=== PATIENT | female | born 1990 | race Caucasian/White ===

== ENCOUNTER 2016-11-24 07:36 | Emergency (ER) | payer MEDICAID, OTHER ==
[2016-11-24 07:48] VITALS: BP 116/64
--- NOTE | 2016-11-24 08:44 | UC ---
Throat Pain/Nasal Jens HPI - HPI Summary HPI Summary: 1 week of hoarseness, dry irritating cough at night. Lost voice 4d ago. No fever. No sinus congestion. No sore throat. - History of Current Complaint Chief Complaint: UCRespiratory Stated Complaint: SORE THROAT,COUGH Time Seen by Provider: 11/24/16 08:09 Hx Obtained From: Patient Hx Last Menstrual Period: 11/14/16 Onset/Duration: Gradual Onset Severity: Mild Cough: Nonproductive Associated Signs & Symptoms: Positive: Hoarseness. Negative: Dysphagia, FB Sensation, Drooling, Wheezing, Sinus Discomfort, Nasal Discharge, Fever, Vomiting, Rash - Allergies/Home Medications Allergies/Adverse Reactions: Allergies Allergy/AdvReac Type Severity Reaction Status Date / Time Amoxicillin Allergy Intermediate Hives Verified 11/24/16 07:43 Home Medications: Home Medications guaiFENesin LIQ* [Robitussin*] 5 mg PO Q4H PRN 11/24/16 [History Confirmed 11/24] PMH/Surg Hx/FS Hx/Imm Hx Previously Healthy: Yes Cardiovascular History Of: Reports: Cardiac Disorders - [facility]/ History Of: Reports: Ulcer - Surgical History Surgical History: Yes Surgery Procedure, Year, and Place: ear tubes, csection - Family History Known Family History: Negative: Diabetes - Social History Occupation: Employed Full-time Lives: With Family Alcohol Use: Occasionally Substance Use Type: None Smoking Status (MU): Never Smoked Tobacco - Immunization History Most Recent Influenza Vaccination: NOT THIS SEASON Review of Systems Constitutional: Negative Skin: Negative Eyes: Negative ENT: Other - hoarseness Respiratory: Cough Cardiovascular: Negative Gastrointestinal: Negative Genitourinary: Negative Motor: Negative Neurovascular: Negative Musculoskeletal: Negative Neurological: Negative Psychological: Negative All Other Systems Reviewed And Are Negative: Yes Physical Exam Triage Information Reviewed: Yes Appearance: Well-Appearing, No Pain Distress, Well-Nourished, Thin Vital Signs: Initial Vital Signs Temp 98.7 F 11/24/16 07:44 Pulse 64 11/24/16 07:44 Resp 18 11/24/16 07:44 BP 116/64 11/24/16 07:44 Pulse Ox 100 11/24/16 07:44 Vital Signs Reviewed: Yes Eye Exam: Normal Eyes: Positive: Conjunctiva Clear ENT: Positive: Pharyngeal erythema - mild, TM dull - right side with fluid level , Muffled/hoarse voice - hoarse. Negative: Tonsillar swelling, Tonsillar exudate, Trismus Neck exam: Normal Neck: Positive: Supple Respiratory Exam: Normal Respiratory: Positive: Lungs clear, Normal breath sounds Cardiovascular Exam: Normal Musculoskeletal Exam: Normal Neurological Exam: Normal Psychological Exam: Normal Skin Exam: Normal Diagnostics - Laboratory Diagnostic Studies Completed/Ordered: Strep neg Throat Pain/Nasal Course/Dx - Differential Dx/Diagnosis Differential Diagnosis/HQI/PQRI: Pharyngitis, URI Provider Diagnoses: uri Discharge - Discharge Plan Condition: Stable Disposition: HOME Prescriptions: Guaifenesin-Codeine [Cheratussin AC] 2 teasp PO BEDTIME PRN #100 ml MDD 10cc PRN Reason: Cough predniSONE TAB* [Deltasone TAB*] 40 mg PO DAILY #8 tab Patient Education Materials: Upper Respiratory Infection (ED) Referrals: Davida Richard MD [Primary Care Provider] -
== END 2016-11-24 08:47 | disposition home or self-care (01) ==
LOC: UCCORT 07:36
DX: J06.9 Acute upper respiratory infection, unspecified (principal); Z88.0 Allergy status to penicillin
CPT/HCPCS: 87651; 99211; G0463

== ENCOUNTER 2016-12-02 09:13 | Emergency (ER) | payer OTHER ==
--- NOTE | 2016-12-02 11:33 | UC ---
Throat Pain/Nasal Jens HPI - HPI Summary HPI Summary: 26 YO FEMALE WITH 2 1/2 WK HX OF COUGH/RUNNY NOSE/SORE THROAT/SINUS PRESSURE AND PAIN NO F/C SEE HERE EARLY IN COURSE OF ILLNESS AND RXED WITH PREDNISONE FOR LARYNGITIS ( WHICH HAS RESOLVED) - History of Current Complaint Chief Complaint: UCGeneralIllness Stated Complaint: THROAT RE-CHECK Time Seen by Provider: 12/02/16 11:22 Hx Obtained From: Patient Hx Last Menstrual Period: 11/14/16 Onset/Duration: Gradual Onset, Lasting Weeks Severity: Moderate Pain Intensity: 4 Pain Scale Used: 0-10 Numeric Cough: Nonproductive Associated Signs & Symptoms: Positive: Sinus Discomfort, Nasal Discharge - Epiglottits Risk Factors Epiglottis Risk Factors: Negative - Allergies/Home Medications Allergies/Adverse Reactions: Allergies Allergy/AdvReac Type Severity Reaction Status Date / Time Amoxicillin Allergy Intermediate Hives Verified 11/24/16 07:43 Home Medications: Home Medications Pseudoephedrine-Guaifenesin [Mucinex D 60-600 mg] 1 tab PO Q6HR PRN 12/02/16 [ History Confirmed 12/02/16] PMH/Surg Hx/FS Hx/Imm Hx Previously Healthy: Yes Cardiovascular History Of: Reports: Cardiac Disorders - [facility]/ History Of: Reports: Ulcer - Surgical History Surgical History: Yes Surgery Procedure, Year, and Place: ear tubes, csection - Family History Known Family History: Positive: Hypertension Negative: Diabetes - Social History Alcohol Use: Occasionally Substance Use Type: None Smoking Status (MU): Never Smoked Tobacco - Immunization History Most Recent Influenza Vaccination: NOT THIS SEASON Review of Systems Constitutional: Negative Skin: Negative Eyes: Negative ENT: Sore Throat, Nasal Discharge Respiratory: Cough Cardiovascular: Negative Gastrointestinal: Negative Genitourinary: Negative Motor: Negative Neurovascular: Negative Musculoskeletal: Negative Neurological: Negative Psychological: Negative All Other Systems Reviewed And Are Negative: Yes Physical Exam Triage Information Reviewed: Yes Appearance: Well-Appearing, No Pain Distress, Well-Nourished Vital Signs: Initial Vital Signs Temp 97.7 F 12/02/16 11:15 Pulse 63 12/02/16 11:15 Resp 16 12/02/16 11:15 Pulse Ox 100 12/02/16 11:15 Vital Signs Reviewed: Yes Eyes: Positive: Conjunctiva Clear ENT: Positive: Hearing grossly normal, Pharyngeal erythema, Nasal congestion, Nasal drainage, TMs normal. Negative: Tonsillar swelling, Tonsillar exudate, Trismus, Muffled/hoarse voice Dental: Negative: Gross Decay/Caries @, Abscess @ Neck: Positive: Supple, Nontender, No Lymphadenopathy Respiratory: Positive: Lungs clear, Normal breath sounds, No respiratory distress, No accessory muscle use Cardiovascular: Positive: RRR. Negative: Tachycardia, Bradycardia Musculoskeletal: Positive: ROM Intact, No Edema Neurological: Positive: Alert Psychological Exam: Normal Skin Exam: Normal Throat Pain/Nasal Course/Dx - Differential Dx/Diagnosis Provider Diagnoses: ACUTE SINUSITIS Discharge - Discharge Plan Condition: Stable Disposition: HOME Prescriptions: ceFUROXime TAB(*) [Ceftin TAB(*)] 250 mg PO BID #20 tab Patient Education Materials: Sinusitis (ED) Referrals: Davida Richard MD [Primary Care Provider] - If Needed Additional Instructions: RECHECK FOR NEW OR WORSENING SYMPTOMS OR IF NOT BETTER IN 4-7 DAYS
== END 2016-12-02 11:38 | disposition home or self-care (01) ==
LOC: UCCORT 09:13
DX: J01.90 Acute sinusitis, unspecified (principal); Z88.1 Allergy status to other antibiotic agents
CPT/HCPCS: 99212; G0463

== ENCOUNTER 2017-07-07 11:20 | Emergency (ER) | payer OTHER ==
[2017-07-07 11:46] VITALS: BP 95/45
--- NOTE | 2017-07-07 12:22 | UC ---
Throat Pain/Nasal Jens HPI - HPI Summary HPI Summary: THREE DAYS OF HEADACHE FEVER, SORE THROAT SINUS CONGESTION. TODDLER HAD STREP THROAT TWO WEEKS AGO. - History of Current Complaint Chief Complaint: UCGeneralIllness Stated Complaint: FEVER SORE THROAT HEADACHE Time Seen by Provider: 07/07/17 11:35 Hx Obtained From: Patient Hx Last Menstrual Period: 06/14/17 Onset/Duration: Gradual Onset, Lasting Days, Still Present Severity: Moderate Pain Intensity: 7 Pain Scale Used: 0-10 Numeric Associated Signs & Symptoms: Positive: Hoarseness, Sinus Discomfort, Nasal Discharge, Fever - Epiglottits Risk Factors Epiglottis Risk Factors: Negative - Allergies/Home Medications Allergies/Adverse Reactions: Allergies Allergy/AdvReac Type Severity Reaction Status Date / Time Amoxicillin Allergy Intermediate Hives Verified 07/07/17 11:40 Home Medications: Home Medications Ibuprofen TAB* [Advil TAB*] 400 mg PO Q6H PRN 07/07/17 [History Confirmed ] PMH/Surg Hx/FS Hx/Imm Hx Previously Healthy: Yes - Surgical History Surgical History: Yes Surgery Procedure, Year, and Place: ear tubes, csection - Family History Known Family History: Positive: Hypertension Negative: Diabetes - Social History Occupation: Employed Full-time Lives: With Family Alcohol Use: Occasionally Substance Use Type: None Smoking Status (MU): Never Smoked Tobacco - Immunization History Most Recent Influenza Vaccination: Not the Season Review of Systems Constitutional: Fever, Chills, Fatigue Eyes: Negative ENT: Sore Throat, Ear Ache, Sinus Congestion Respiratory: Negative Cardiovascular: Negative Gastrointestinal: Negative Genitourinary: Negative Motor: Negative Neurovascular: Negative Musculoskeletal: Negative Neurological: Negative Psychological: Negative All Other Systems Reviewed And Are Negative: Yes Physical Exam Triage Information Reviewed: Yes Appearance: Well-Appearing, No Pain Distress, Well-Nourished Vital Signs: Initial Vital Signs Temp 98.8 F 07/07/17 11:37 Pulse 78 07/07/17 11:37 Resp 16 07/07/17 11:37 BP 95/45 07/07/17 11:37 Pulse Ox 100 07/07/17 11:37 Vital Signs Reviewed: Yes Eye Exam: Normal ENT Exam: Normal ENT: Positive: Pharyngeal erythema, TM bulging, TM dull, TM red - LEFT, Tonsillar swelling Dental Exam: Normal Neck exam: Normal Neck: Positive: Supple, Nontender, No Lymphadenopathy Respiratory Exam: Normal Respiratory: Positive: Chest non-tender, Lungs clear, Normal breath sounds, No respiratory distress Cardiovascular Exam: Normal Cardiovascular: Positive: RRR, No Murmur, Pulses Normal Abdominal Exam: Normal Musculoskeletal Exam: Normal Neurological Exam: Normal Psychological Exam: Normal Skin Exam: Normal Throat Pain/Nasal Course/Dx - Differential Dx/Diagnosis Differential Diagnosis/HQI/PQRI: Pharyngitis, Sinusitis, Tonsillitis, URI Provider Diagnoses: SINUSITIS; TONSILLITIS Discharge - Discharge Plan Condition: Stable Disposition: HOME Prescriptions: Azithromycin TAB* [Zithromax TAB (Z-REGINALDO) 250 mg #6 tabs] 250 mg PO DAILY #6 tab Patient Education Materials: Sinusitis (ED), Tonsillitis (ED) Referrals: Davida Richard MD [Primary Care Provider] -
== END 2017-07-07 12:14 | disposition home or self-care (01) ==
LOC: UCCORT 11:20
DX: J32.9 Chronic sinusitis, unspecified (principal); J03.90 Acute tonsillitis, unspecified; Z88.3 Allergy status to other anti-infective agents
CPT/HCPCS: 87651; 99212; G0463

== ENCOUNTER 2017-12-12 07:41 | Emergency (ER) | payer OTHER ==
[2017-12-12 07:53] VITALS: BP 105/65
--- NOTE | 2017-12-12 08:13 | UC ---
Respiratory Complaint HPI - HPI Summary HPI Summary: 1 WEEK OF PRODUCTIVE COUGH, CHEST CONGESTION AND TIGHTNESS. LOST VOICE A FEW DAYS AGO. DENIES FEVER, N/V/D, EAR PAIN. - History of Current Complaint Chief Complaint: UCRespiratory Stated Complaint: CHEST CONGESTION Time Seen by Provider: 12/12/17 08:06 Hx Obtained From: Patient Hx Last Menstrual Period: 11/24/17 Onset/Duration: Gradual Onset, Lasting Days, Still Present Timing: Constant Severity Initially: Moderate Severity Currently: Moderate Pain Intensity: 0 Pain Scale Used: 0-10 Numeric Character: Cough: Productive Aggravating Factors: Nothing Alleviating Factors: Nothing Associated Signs And Symptoms: Positive: Pleuritic Chest Pain, URI, Nasal Congestion, Hoarseness. Negative: Dyspnea, Fever, Chills, Wheezing - Allergies/Home Medications Allergies/Adverse Reactions: Allergies Allergy/AdvReac Type Severity Reaction Status Date / Time MS Amoxicillin [Amoxicillin] Allergy Intermediate Hives Verified 12/12/17 07:50 PMH/Surg Hx/FS Hx/Imm Hx Previously Healthy: Yes - Surgical History Surgical History: Yes Surgery Procedure, Year, and Place: ear tubes, csection - Family History Known Family History: Negative: Hypertension, Diabetes - Social History Alcohol Use: Rare Substance Use Type: None Smoking Status (MU): Never Smoked Tobacco - Immunization History Most Recent Influenza Vaccination: Not the 2016/2017 Season Review of Systems Constitutional: Negative ENT: Nasal Discharge, Other - HOARSE VOICE Respiratory: Cough Cardiovascular: Negative Gastrointestinal: Negative All Other Systems Reviewed And Are Negative: Yes Physical Exam Triage Information Reviewed: Yes Appearance: Well-Appearing, No Pain Distress, Well-Nourished Vital Signs: Initial Vital Signs Temp 98.3 F 12/12/17 07:49 Pulse 65 12/12/17 07:49 Resp 18 12/12/17 07:49 BP 105/65 12/12/17 07:49 Pulse Ox 100 12/12/17 07:49 Vital Signs Reviewed: Yes Eyes: Positive: Conjunctiva Clear ENT: Positive: Hearing grossly normal, Pharynx normal, TMs normal, Hoarse voice Neck: Positive: Supple, Nontender, No Lymphadenopathy Respiratory Exam: Normal Cardiovascular Exam: Normal Abdomen Description: Positive: Soft Musculoskeletal: Positive: No Edema Neurological: Positive: Alert Psychological: Positive: Age Appropriate Behavior Skin: Negative: rashes UC Diagnostic Evaluation - Laboratory O2 Sat by Pulse Oximetry: 100 Respiratory Course/Dx - Differential Dx/Diagnosis Provider Diagnoses: ACUTE BRONCHITIS/LARYNGITIS Discharge - Discharge Plan Condition: Stable Disposition: HOME Prescriptions: Albuterol HFA INHALER* [Ventolin HFA Inhaler*] 2 puff INH Q4H PRN #1 mdi PRN Reason: Shortness Of Breath Azithromycin 500 mg PO DAILY #5 tab predniSONE TAB* [Deltasone TAB*] 40 mg PO DAILY #10 tab Patient Education Materials: Laryngitis (ED), Acute Bronchitis (ED) Referrals: Davida Richard MD [Medical Doctor] - If Needed Additional Instructions: YOUR SYMPTOMS MAY BE VIRALLY MEDIATED BUT GIVEN THE LENGTH OF TIME YOU HAVE BEEN ILL WE WILL COVER YOU WITH ANTIBIOTICS. IF YOU START THE MEDICINE BE SURE TO TAKE IT FOR THE FULL COURSE. REST, HYDRATE, OTC MEDS NEEDED. WILL ALSO TREAT WITH PREDNISONE TO HELP WITH AIRWAY INFLAMMATION AND AN INHALER. SEEK FOLLOW-UP WITH YOUR PCP IF YOU ARE NOT IMPROVING OVER THE NEXT 1-2 WEEKS.
== END 2017-12-12 08:30 | disposition home or self-care (01) ==
LOC: UCCORT 07:41
DX: J20.9 Acute bronchitis, unspecified (principal); J04.0 Acute laryngitis
CPT/HCPCS: 99212; G0463

== ENCOUNTER 2019-01-19 17:07 | Emergency (ER) | payer OTHER ==
[2019-01-19 19:09] VITALS: BP 145/81
--- NOTE | 2019-01-19 19:49 | UC ---
Throat Pain/Nasal Jens HPI - HPI Summary HPI Summary: 28-year-old woman comes in with a chief complaint of rhinorrhea and sinus pressure. Patient's been sick for more than a week with upper respiratory tract infection. Minimal sore throat. She does have a headache centered on her frontal sinuses. She is 4 months . No recent fevers. No cough or chest congestion or shortness of breath. She's taken some Tylenol and occasionally Sudafed with minimal help with the symptoms. - History of Current Complaint Chief Complaint: UCRespiratory Stated Complaint: SINUSES, HEADACHE (4MOS ) Time Seen by Provider: 01/19/19 19:35 Hx Last Menstrual Period: 11/24/17 Pain Intensity: 8 - Allergies/Home Medications Allergies/Adverse Reactions: Allergies Allergy/AdvReac Type Severity Reaction Status Date / Time amoxicillin Allergy Hives Verified 01/19/19 19:09 Home Medications: Home Medications Acetaminophen [Acetaminophen Extra Strength] 500 mg PO ONCE 01/19/19 [History Confirmed 01/19/19] Phenylephrine HCl [Sudafed PE] 10 mg PO ONCE 01/19/19 [History Confirmed ] PMH/Surg Hx/FS Hx/Imm Hx Previously Healthy: Yes - Surgical History Surgical History: Yes Surgery Procedure, Year, and Place: ear tubes, - Family History Known Family History: Negative: Hypertension, Diabetes - Social History Alcohol Use: None Substance Use Type: None Smoking Status (MU): Never Smoked Tobacco - Immunization History Most Recent Influenza Vaccination: Not the 2017/2017 Season Review of Systems All Other Systems Reviewed And Are Negative: Yes Constitutional: Positive: Negative Skin: Positive: Negative Eyes: Positive: Negative ENT: Positive: Nasal Discharge, Sinus Congestion, Sinus Pain/Tenderness Respiratory: Positive: Negative Cardiovascular: Positive: Negative Gastrointestinal: Positive: Negative Motor: Positive: Negative Neurovascular: Positive: Negative Musculoskeletal: Positive: Arthralgia Neurological: Positive: Negative Psychological: Positive: Negative Is Patient Immunocompromised?: No Physical Exam Triage Information Reviewed: Yes Appearance: No Pain Distress, Well-Nourished, Ill-Appearing Vital Signs: Initial Vital Signs Temp 97.9 F 01/19/19 19:05 Pulse 81 01/19/19 19:05 Resp 16 01/19/19 19:05 BP 145/81 01/19/19 19:05 Pulse Ox 100 01/19/19 19:05 Vital Signs Reviewed: Yes Eye Exam: Normal Eyes: Positive: Conjunctiva Clear ENT: Positive: Pharyngeal erythema, Nasal congestion, Nasal drainage, TMs normal Neck exam: Normal Neck: Positive: Supple Respiratory: Positive: Lungs clear, Normal breath sounds, No respiratory distress Cardiovascular: Positive: RRR Musculoskeletal Exam: Normal Musculoskeletal: Positive: Strength Intact, ROM Intact Neurological Exam: Normal Neurological: Positive: Alert, Muscle Tone Normal Psychological Exam: Normal Psychological: Positive: Age Appropriate Behavior Skin Exam: Normal Throat Pain/Nasal Course/Dx - Differential Dx/Diagnosis Provider Diagnosis: Sinusitis Discharge - Sign-Out/Discharge Documenting (check all that apply): Patient Departure All imaging exams completed and their final reports reviewed: No Studies - Discharge Plan Condition: Stable Disposition: HOME Prescriptions: Azithromyxin REGINALDO (NF) [Z-Reginaldo (Zithromax) 250 mg tabs #6] 2 tab PO .TODAY, THEN 1 DAILY #6 tab Patient Education Materials: Sinusitis (ED) Referrals: [facility] [Outside] Additional Instructions: FOLLOW UP WITH YOUR DOCTOR IF NOT COMPLETELY IMPROVED. GET RECHECKED FOR ANY WORSENING OF YOUR CONDITION OR QUESTIONS OR CONCERNS. - Billing Disposition and Condition Condition: STABLE Disposition: Home
== END 2019-01-19 19:54 | disposition home or self-care (01) ==
LOC: UCCORT 17:07
DX: J32.9 Chronic sinusitis, unspecified (principal); J02.9 Acute pharyngitis, unspecified; Z88.0 Allergy status to penicillin
CPT/HCPCS: 99212; G0463

== ENCOUNTER 2019-05-09 11:00 | Emergency (ER) | payer OTHER ==
[2019-05-09 11:38] VITALS: BP 103/61
--- NOTE | 2019-05-09 11:49 | UC ---
Throat Pain/Nasal Jens HPI - HPI Summary HPI Summary: 5 day history of increasing facial pressure with green nasal discharge, fatigue , cough. Chest feels tight, remote history of asthma. Third trimester , all progressing well. - History of Current Complaint Chief Complaint: UCRespiratory Stated Complaint: SINUS COMPLAINT(8 MTHS PREG) Time Seen by Provider: 05/09/19 11:41 Hx Obtained From: Patient Hx Last Menstrual Period: 11/24/17 Onset/Duration: Gradual Onset, Lasting Days - 5 Severity: Moderate Pain Intensity: 8 Cough: Nonproductive Associated Signs & Symptoms: Positive: Sinus Discomfort, Nasal Discharge - Epiglottits Risk Factors Epiglottis Risk Factors: Negative - Allergies/Home Medications Allergies/Adverse Reactions: Allergies Allergy/AdvReac Type Severity Reaction Status Date / Time amoxicillin Allergy Hives Verified 05/09/19 11:32 Home Medications: Home Medications Docusate CAP* [Colace Cap*] 100 mg PO DAILY 05/09/19 [History Confirmed 05/09/19 ] Omeprazole 20 mg PO DAILY 05/09/19 [History Confirmed 05/09/19] Pnv No.95/Ferrous Fum/Folic AC [ Caplet] 1 each PO DAILY 05/09/19 [ History Confirmed 05/09/19] PMH/Surg Hx/FS Hx/Imm Hx Previously Healthy: Yes - - Surgical History Surgical History: Yes Surgery Procedure, Year, and Place: ear tubes, - Family History Known Family History: Negative: Hypertension, Diabetes - Social History Occupation: Employed Full-time Lives: With Family Alcohol Use: None Substance Use Type: None Smoking Status (MU): Never Smoked Tobacco - Immunization History Most Recent Influenza Vaccination: Not the Season Review of Systems All Other Systems Reviewed And Are Negative: Yes Constitutional: Positive: Fatigue ENT: Positive: Nasal Discharge, Sinus Congestion, Sinus Pain/Tenderness Respiratory: Positive: Cough Musculoskeletal: Positive: Negative Neurological: Positive: Negative Psychological: Positive: Negative Physical Exam Triage Information Reviewed: Yes Appearance: Ill-Appearing - congested, looks unwell Vital Signs: Initial Vital Signs Temp 98.1 F 05/09/19 11:33 Pulse 92 05/09/19 11:33 Resp 16 05/09/19 11:33 BP 103/61 05/09/19 11:33 Pulse Ox 100 05/09/19 11:33 Eye Exam: Other - no photophobia, normal eom Eyes: Positive: Conjunctiva Clear, Other: - lower lids with mild swelling ENT: Positive: Pharyngeal erythema, TMs normal, Sinus tenderness - right maxillary Neck: Positive: Supple, Nontender, No Lymphadenopathy Respiratory: Positive: Lungs clear, Normal breath sounds Cardiovascular: Positive: RRR, No Murmur Musculoskeletal Exam: Normal Neurological Exam: Normal Throat Pain/Nasal Course/Dx - Course Course Of Treatment: discussed pros/cons of treatment; elects course of antibiotics. - Differential Dx/Diagnosis Differential Diagnosis/HQI/PQRI: Pharyngitis, Sinusitis, URI Provider Diagnosis: Acute sinusitis Discharge - Sign-Out/Discharge Documenting (check all that apply): Patient Departure All imaging exams completed and their final reports reviewed: No Studies - Discharge Plan Condition: Stable Disposition: HOME Prescriptions: cephALEXin [Keflex] 500 mg PO BID #14 capsule Patient Education Materials: Sinusitis (ED) Referrals: Davida Richard MD [Primary Care Provider] - Additional Instructions: Continue saline washes, hot packs to the sinuses, and acetaminophen if needed for control of facial pain. Cephalexin has been prescribed for treatment of sinusitis. Ensure that the full course is taken. - Billing Disposition and Condition Condition: STABLE Disposition: Home
== END 2019-05-09 12:04 | disposition home or self-care (01) ==
LOC: UCCORT 11:00
DX: O99.513 Diseases of the respiratory system complicating pregnancy, third trimester (principal); J01.90 Acute sinusitis, unspecified; Z3A.00 Weeks of gestation of pregnancy not specified; Z88.0 Allergy status to penicillin
CPT/HCPCS: 99212; G0463

== ENCOUNTER 2019-08-03 18:43 | Emergency (ER) | payer OTHER ==
[2019-08-03 21:11] VITALS: BP 102/62
[2019-08-03] MEDS ORDERED: Sulfamethox/Trimethoprim DS 800/160* TAB PO ONE (21:25)
--- NOTE | 2019-08-03 21:31 | UC ---
Complaint Female HPI - HPI Summary HPI Summary: 29-year-old female who has had burning on urination for 6 days. She states she had a fever yesterday but that has resolved. - History Of Current Complaint Chief Complaint: UCGU Stated Complaint: FEVER,UTI SYMPTOMS Time Seen by Provider: 08/03/19 21:13 Hx Obtained From: Patient Hx Last Menstrual Period: 11/24/17 ?: No Onset/Duration: Gradual Onset Timing: Intermittent Severity Initially: Mild Severity Currently: Mild Pain Intensity: 6 Character: Burning Aggravating Factor(s): Urination Associated Signs And Symptoms: Positive: Fever - Patient states she had a fever yesterday but that has resolved. - Allergies/Home Medications Allergies/Adverse Reactions: Allergies Allergy/AdvReac Type Severity Reaction Status Date / Time amoxicillin Allergy Hives Verified 08/03/19 21:11 PMH/Surg Hx/FS Hx/Imm Hx - Additional Past Medical History Additional PMH: Patient is 4 weeks following a for a healthy baby girl. She has had no complications. He denies any abnormal vaginal discharge. Her lochia has stopped. Previously Healthy: No - Surgical History Surgical History: Yes Surgery Procedure, Year, and Place: ear tubes, x2 - Family History Known Family History: Negative: Hypertension, Diabetes - Social History Lives: With Family Alcohol Use: Occasionally Substance Use Type: None Smoking Status (MU): Never Smoked Tobacco - Immunization History Most Recent Influenza Vaccination: Not the 2016/2017 Season Review of Systems All Other Systems Reviewed And Are Negative: Yes Genitourinary: Positive: Dysuria, Frequency Is Patient Immunocompromised?: No Physical Exam Triage Information Reviewed: Yes Appearance: Well-Appearing, No Pain Distress, Well-Nourished Vital Signs: Initial Vital Signs Temp 97.4 F 08/03/19 21:05 Pulse 84 08/03/19 21:05 Resp 16 08/03/19 21:05 BP 102/62 08/03/19 21:05 Pulse Ox 98 08/03/19 21:05 Vital Signs Reviewed: Yes Eyes: Positive: Conjunctiva Clear ENT: Positive: Hearing grossly normal, Pharynx normal, TMs normal, Uvula midline Neck: Positive: Supple, Nontender, No Lymphadenopathy Respiratory: Positive: Lungs clear, Normal breath sounds, No respiratory distress, No accessory muscle use Cardiovascular: Positive: RRR, No Murmur, Pulses Normal, Brisk Capillary Refill Abdomen Description: Positive: Nontender, No Organomegaly, Soft. Negative: CVA Tenderness (R), CVA Tenderness (L), Distended, Guarding, Hepatomegaly, McBurney' s Point Tenderness, Splenomegaly Bowel Sounds: Positive: Present Musculoskeletal Exam: Normal Neurological Exam: Normal Psychological Exam: Normal Skin Exam: Normal Complaint Female Dx - Course Course Of Treatment: Urinalysis was positive for urinary tract infection, urine test was negative. She is to increase fluids. Go to the emergency room if she develops any fever, chills, back pain or vomiting and unable keep medicine down. - Differential Dx/Diagnosis Provider Diagnosis: UTI (urinary tract infection) Discharge ED - Sign-Out/Discharge Documenting (check all that apply): Patient Departure All imaging exams completed and their final reports reviewed: No Studies - Discharge Plan Condition: Good Disposition: HOME Prescriptions: Sulfamethox/Trimethoprim DS* [Bactrim DS 800/160 TAB*] 1 tab PO BID 5 Days #9 tab Patient Education Materials: Urinary Tract Infection in Women (DC) Referrals: Davida Richard MD [Primary Care Provider] - Additional Instructions: Increase fluids, go to the emergency room if you develop fever, chills, vomiting and unable to keep the medicine down. - Billing Disposition and Condition Condition: GOOD Disposition: Home
--- NOTE | 2019-08-06 07:50 | UC ---
- Progress Note Progress Note: Patient seen here for UTI symptoms. Patient was started on Bactrim. Patient's prelim culture shows Escherichia coli. There will be no change in antibiotics until sensitivities are performed. No change in plan today. Course/Dx - Diagnoses Provider Diagnoses: UTI (urinary tract infection) Discharge ED - Sign-Out/Discharge Documenting (check all that apply): Post-Discharge Follow Up All imaging exams completed and their final reports reviewed: No Studies - Discharge Plan Condition: Good Disposition: HOME Prescriptions: Sulfamethox/Trimethoprim DS* [Bactrim DS 800/160 TAB*] 1 tab PO BID 5 Days #9 tab Patient Education Materials: Urinary Tract Infection in Women (DC) Referrals: Davida Richard MD [Primary Care Provider] - Additional Instructions: Increase fluids, go to the emergency room if you develop fever, chills, vomiting and unable to keep the medicine down. - Billing Disposition and Condition Condition: GOOD Disposition: Home
--- NOTE | 2019-08-07 07:17 | UC ---
- Progress Note Progress Note: + E. coli URI, sensitive and treated with Bactrim DS. No change in treatment. Course/Dx - Diagnoses Provider Diagnoses: UTI (urinary tract infection) Discharge ED - Sign-Out/Discharge Documenting (check all that apply): Post-Discharge Follow Up All imaging exams completed and their final reports reviewed: No Studies - Discharge Plan Condition: Good Disposition: HOME Prescriptions: Sulfamethox/Trimethoprim DS* [Bactrim DS 800/160 TAB*] 1 tab PO BID 5 Days #9 tab Patient Education Materials: Urinary Tract Infection in Women (DC) Referrals: Davida Richard MD [Primary Care Provider] - Additional Instructions: Increase fluids, go to the emergency room if you develop fever, chills, vomiting and unable to keep the medicine down. - Billing Disposition and Condition Condition: GOOD Disposition: Home
== END 2019-08-03 21:35 | disposition home or self-care (01) ==
LOC: UCCORT 18:43
DX: N39.0 Urinary tract infection, site not specified (principal); Z32.02 Encounter for pregnancy test, result negative; Z88.0 Allergy status to penicillin
CPT/HCPCS: 81003; 84702; 87077; 87086; 87186; 99212; A9270-GY; G0463

== ENCOUNTER 2020-01-03 19:31 | Emergency (ER) | payer OTHER ==
--- OUTSIDE RECORDS SUMMARY | 2020-01-03 19:38 | XMS REPORT | Continuity of Care Document ---
:1990 External Reference #:[id number] Author Name Merle Pina, GALINDO Address [address] [place] [address] Care Team Providers Name Role Phone Jair Corcoran PHD - Physical Care Team Information [place] [phone] Therapist Problems Description No Information Available Social History Type Date Description Comments Sex Unknown ETOH Use Occasionally consumes alcohol Tobacco Use Start: Unknown Patient has never smoked Smoking Status Reviewed: 08/21/18 Patient has never smoked Allergies, Adverse Reactions, Alerts Active Allergies Reaction Severity Comments Date Amoxicillin 10/27/2014 Medications Active Medications SIG Qnty Indications Ordering Provider Date Vitamin B 12 1 by mouth, 90tabs E53.9 Davida Richard, 12/21/2019 500mcg daily with meal Tablets with dinner with protein Fluticasone Propionate 2 sprays to each 16gm J01.90 Davida Richard, 03/2020 nostril daily 50mcg/Act Suspension Vitamin D3 2 by mouth every 30caps E55.9 Davida Richard, 11/15/2019 50mcg (1999 day MD [place]) Capsules Paragard Intrauterine Unknown Copper Contraceptive T380a T380a IUD History Medications Cefdinir 2 by mouth 20caps J01.90 Davida Richard, 12/15/2019 - 300mg Capsules daily 12/25/2019 Vitamin B-12 take one tablet 90tabs E53.9 Davida Richard, 09/30/2019 - 1000mcg by mouth every MD 12/21/2019 Tablets day with food/protein/me at Vitamin D3 1 by mouth 90caps E55.9 Davida Richard, 09/30/2019 - 125mcg (5000 every day with 11/15/2019 [place]) Capsules main meal with meat fat oil Sertraline HCL 1 by mouth 30tabs F41.9 Davida Richard, 09/29/2019 - 25mg every day in MD 10/10/2019 Tablets the morning Ciprofloxacin HCL 1 tab by mouth 14tabs N10 Kaycee Anthony MD 08/04/2019 - 500mg twice a day 08/11/2019 Tablets Immunizations CPT Code Status Date Vaccine Reaction Lot # [id number] Given 12/29/2015 Tdap (Adacel) Ages 7 And Above Only per prsiis 63634 Given 11/20/2009 Menactra/Menveo Meningococcal Vaccine per prsiis 48495 Given 11/20/2009 Varicella (Chicken Pox) Immunization per nysiis 68391 Given 11/20/2009 Tdap (Adacel) Ages 7 And Above Only per nysiis 46758 Given 11/24/2007 HPV Vaccine (Gardasil) 3 Dose Schedule per nysiis 35672 Given 08/03/2007 Tdap (Adacel) Ages 7 And Above Only per nysiis 84685 Given 07/02/2007 HPV Vaccine (Gardasil) 3 Dose Schedule per nysiis 05785 Given 05/07/2007 HPV Vaccine (Gardasil) 3 Dose Schedule per nysiis 71719 Given 06/08/2004 Hepatitis B Vac Ped/Adolescent 3 Dose per nyis Schedule U-Polio Given 08/25/1997 Polio (Non Billable) Unspecified per nysiis 02157 Given 08/25/1997 DTaP Immunization 6 Yrs & Younger per nysiis 15363 Given 08/19/1997 Varicella (Chicken Pox) Immunization per nysiis 36800 Given 06/01/1996 MMR Virus Immunization per nysiis 62419 Given 12/18/1995 Hepatitis B Vac Ped/Adolescent 3 Dose per nysiis Schedule 29665 Given 05/24/1994 MMR Virus Immunization per nysiis 77273 Given 05/24/1994 [facility] 6 Yrs & [facility] Given 05/24/1994 Polio (Non Billable) Unspecified per nysiis 54710 Given 05/25/1993 Hepatitis B Vac Ped/Adolescent 3 Dose per nyis Schedule 21701 Given 1993 Hib ACTHiB Vaccine 4 Dose Schedule per [facility] 02246 Given 1992 DTaP Immunization 6 Yrs & Younger per [facility] 23324 Given 1992 Hib ACTHiB Vaccine 4 Dose Schedule per [facility] U-Polio Given 1992 Polio (Non Billable) Unspecified per [facility] 51346 Given 1992 DTaP Immunization 6 Yrs & Younger per [facility] 16495 Given 1992 Hib ACTHiB Vaccine 4 Dose Schedule per [facility] 04808 Given 1992 DTaP Immunization 6 Yrs & Younger per [facility] 06743 Given 1992 Hib ACTHiB Vaccine 4 Dose Schedule per [facility] U-Polio Given 1992 Polio (Non Billable) Unspecified per [facility] U-Flu Refused 12/15/2019 Influenza (Non Billable) Pt says she has not yet Unspecified gotten a flu shot. 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 Over Preservative & Antibiotic Free Q2039 Refused 01/19/2018 Flu Vaccine NOS Vital Signs Date Vital Result Comment 12/30/2019 8:41am Weight 114.00 lb Heart Rate 70 /min BP Systolic 112 mmHg BP Diastolic 74 mmHg Respiratory Rate 16 /min Height 62.75 inches 5'2.75" BMI (Body Mass Index) 20.4 kg/m2 12/15/2019 11:44am Body Temperature 98.7 F tympanic Weight 115.00 lb Heart Rate 76 /min BP Systolic 122 mmHg BP Diastolic 80 mmHg Respiratory Rate 16 /min Height 62.75 inches 5'2.75" BMI (Body Mass Index) 20.5 kg/m2 Results Test Acquired Date Facility Test Result H/L Range Note Laboratory test 12/30/2019 [facility] Troponin I <0.05 ng/mL (<0.05) 1, 2 finding CBC with Auto 12/30/2019 [facility] WBC 8.7 K/uL 4.1-11.0 3 Diff-fcmg RBC 4.33 M/uL 4.00-5.40 4 Hemoglobin 13.2 gm/dL 12.0-16.0 5 Hematocrit 39.0 % 36.0-47.0 6 MCV 90.0 fL 80.0-95.0 7 MCH 30.4 pg 27.0-32.0 8 MCHC 33.8 g/dL 32.0-36.0 9 RDW 14.0 % 10.5-14.5 10 PLT Count 219 K/ul 150-400 11 MPV 8.4 FL 7.1-10.7 Neutrophil 82.0 % High 35.0-75.0 12 Lymphocyte 10.6 % Low 16.0-52.0 13 Monocyte 6.2 % 0.0-8.0 14 Eosinophil 0.8 % 0.0-5.0 Basophil 0.4 % 0.0-4.0 Abs Neutrophils 7.1 K/uL 1.8-7.7 15 Abs Lymphocytes 0.9 K/uL Low 1.2-4.8 16 Abs Monocytes 0.5 K/uL 0.0-0.8 17 Abs Eosinophils 0.1 K/uL 0.0-0.5 18 Abs Basophils 0.0 K/uL 0.0-0.2 19 Comprehensive Met Panel-[facility]CMG 12/30/2019 [facility] Sodium 141 mmol/L 135- 146 20 Potassium 3.9 mmol/L 3.5-5.2 Chloride# 104 mmol/L 97-110 21 Carbon Dioxide 29 mmol/L 24-34 Calcium 9.2 mg/dL 8.5-10.5 22 Glucose 89 mg/dL 70-105 BUN 13 mg/dL 6-26 Creatinine 0.8 mg/dL 0.5-1.4 Total Protein 6.8 g/dL 6.0-8.0 Albumin 4.3 g/dL 3.6-4.9 Globulin 2.5 g/dL 2.0-3.5 A/G Ratio 1.7 Ratio 1.0-2.2 Total Bilirubin 0.6 mg/dL 0.1-1.3 Alkaline Phosphatase 61 U/L 24-140 Alt 16 U/L 3-42 Ast 15 U/L 8-42 Anion Gap 8 mmol/L 5-15 23 Female Egfr 104 >60 24 Male Egfr 123 >60 25 Laboratory test 12/30/2019 [facility] CRP (C-Reactive) 0.28 mg/dL 0.00- 0.75 finding inflammation Esr 12 mm/hr 0-20 Laboratory test finding 12/20/2019 [facility] Vitamin B12 >1500 pg/mL High 180-914 26 Vitamin D 25 Hydroxy 39 ng/mL 30-100 27 CBC with Auto Diff-fcmg 09/29/2019 [facility] WBC 6.0 K/uL 4.1-11.0 28, 29 RBC 4.51 M/uL 4.00-5.40 30 Hemoglobin 13.1 gm/dL 12.0-16.0 31 Hematocrit 39.6 % 36.0-47.0 32 MCV 88.0 fL 80.0-95.0 33 MCH 29.0 pg 27.0-32.0 34 MCHC 32.9 g/dL 32.0-36.0 35 RDW 17.0 % High 10.5-14.5 36 PLT Count 314 K/ul 150-400 37 MPV 8.1 FL 7.1-10.7 Neutrophil 80.5 % High 35.0-75.0 38 Lymphocyte 14.7 % Low 16.0-52.0 39 Monocyte 3.4 % 0.0-8.0 40 Eosinophil 0.8 % 0.0-5.0 Basophil 0.6 % 0.0-4.0 Abs Neutrophils 4.9 K/uL 1.8-7.7 41 Abs Lymphocytes 0.9 K/uL Low 1.2-4.8 42 Abs Monocytes 0.2 K/uL 0.0-0.8 43 Abs Eosinophils 0.0 K/uL 0.0-0.5 44 Abs Basophils 0.0 K/uL 0.0-0.2 45 Comprehensive Met Panel-[facility] 09/29/2019 [facility] Sodium 140 mmol/L 135- 146 46 Potassium 4.1 mmol/L 3.5-5.2 Chloride# 104 mmol/L 97-110 47 Carbon Dioxide 27 mmol/L 24-34 Calcium 9.6 mg/dL 8.5-10.5 48 Glucose 95 mg/dL 70-105 BUN 7 mg/dL 6-26 Creatinine 0.7 mg/dL 0.5-1.4 Total Protein 6.8 g/dL 6.0-8.0 Albumin 4.3 g/dL 3.6-4.9 Globulin 2.5 g/dL 2.0-3.5 A/G Ratio 1.7 Ratio 1.0-2.2 Total Bilirubin 0.4 mg/dL 0.1-1.3 Alkaline Phosphatase 64 U/L 24-140 Alt 12 U/L 3-42 Ast 16 U/L 8-42 Anion Gap 9 mmol/L 5-15 49 Female Egfr 114 >60 50 Male Egfr 127 >60 51 Laboratory test finding 09/29/2019 [facility] TSH 0.72 uIU/mL 0.35-4.94 Free T4 1.13 ng/dL 0.70-1.48 Vitamin B12 299 pg/mL 180-914 Vitamin D 25 Hydroxy 26 ng/mL Low 30-100 52 Blood Culture 08/06/2019 [facility] Blood Culture NO GROWTH: 53, 54 (315)- - Aerobic FINAL <SEE NOTE> Blood Culture Anaerobic NO GROWTH: FINAL <SEE NOTE> 55 Laboratory 08/06/2019 [facility] HCG,Serum NEGATIVE ( Negative) test finding (315)- - (Qualitative) Lactic Acid 08/06/2019 [facility] Lactic Acid 0.8 mmol/L Normal 0.4-1.9 (315)- - Lab Reflex >2.0 for Sepsis? Y Laboratory test 08/06/2019 [facility] Lipase 33 U/L Low 56-289 finding (315)- - Comprehensive 08/06/2019 [facility] Glucose 87 mg/dL Normal 74-106 Metabolic Panel (315)- - BUN 6 mg/dL Low 7-18 Creatinine 0.6 mg/dL Normal 0.6-1.3 Glom Filtration Rate, Estimate >60 mL/min >60 If >60 mL/min >60 56 BUN/Creat 10.0 ratio Sodium 136 mmol/L Normal 136-145 Potassium 3.3 mmol/L Low 3.5-5.1 Chloride 101 mmol/L Normal 98-107 Carbon Dioxide 26 mmol/L Normal 21-32 Anion Gap 9 mEq/L Normal 8-16 Calcium 9.1 mg/dL Normal 8.5-10.1 Total Protein 7.9 g/dL Normal 6.4-8.2 Albumin 3.7 g/dL Normal 3.4-5.0 Globulin 4.2 g/dL Normal 1.9-4.3 Alb/Glob 0.9 ratio Bilirubin,Total 0.3 mg/dL Normal 0.2-1.0 Sgot/Ast 17 U/L Normal 15-37 SGPT/Alt 20 U/L Normal 12-78 Alkaline Phosphatase 86 U/L Normal 45-117 CBS W/Automated 08/06/2019 [facility] White Blood 5.0 K/ uL Normal 3.1-10.7 Diff (315)- - Count Red Blood Count 4.25 M/uL Normal 3.90-5.40 Hemoglobin 11.9 gm/dL Normal 11.6-15.8 Hematocrit 36.3 % Normal 36.0-46.1 Mean Cell Volume 85.4 fl Normal 80.9-99.0 Mean Corpuscular HGB 28.0 pg Normal 25.9-32.7 Mean Corpuscular HGB Conc 32.8 g/dL Normal 30.8-34.3 Platelet Count 217 K/uL Normal 155-360 Red Cell Distri Width SD 45.9 fl Normal 36-47 Red Cell Distri Width %CV 14.8 % High 11.7-14.4 Mean Platelet Volume 9.6 fl Normal 8.9-12.4 Neut% 67.5 % Normal 40.4-72.8 Lymph % 20.0 % Normal 20.0-42.0 Elliott % 9.5 % Normal 4.3-13.2 Eo% 2.2 % Normal 0.0-6.6 Bas% 0.4 % Normal 0.0-1.1 Immature Grans 0.4 % Normal 0.0-5.0 NRBC % 0.0 /100WBC < 10/ 100 WBC Neut# 3.40 K/uL Normal 1.8-7.0 Lymph # 1.01 K/uL Normal 1.0-4.0 Elliott # 0.48 K/uL Normal 0.3-0.9 Eos # 0.11 K/uL Normal 0.0-0.5 Baso # 0.02 K/uL Normal 0.0-0.1 Immature Grans Absolute 0.02 K/uL NRBC # 0.00 K/uL Blood Culture 08/06/2019 [facility] Blood Culture NO GROWTH: FINAL 57 (315)- - Aerobic <SEE NOTE> Blood Culture Anaerobic NO GROWTH: FINAL <SEE NOTE> 58 Urinalysis With 08/06/[address] [facility] Urine Color Light- Yellow Yellow Microscopic (315)- - Urine Clarity Clear Clear Urine Glucose - Dipstick NEGATIVE mg/dL Negative Urine Bilirubin - Dipstick NEGATIVE Negative Urine Ketone 60 mg/dL Abnormal Negative Urine Specific [place] 1.008 Low 1.010-1.030 Urine Blood MODERATE Abnormal 0-2 Urine PH 5.0 Low 6.5-7.5 Urine Protein - Dipstick NEGATIVE mg/dL Negative Urine Urobilinogen - Dipstick < 2.0 mg/dL < 2.0 Urine Nitrite - Dipstick NEGATIVE Negative Urine Leuk Esterase NEGATIVE Negative Urine RBC 3-5 rbc/hpf 0-2 Urine WBC 0-2 wbc/hpf 0-5 Urine Bacteria FEW None Seen Urine Mucus SMALL None Seen Source: URINE, CLEAN CAT <SEE NOTE> 59 Rout Urine W/ Micro -RL 08/04/2019 [facility] Color YELLOW Appearance CLEAR Spec Grav Urine 1.020 (1.003-1.030) PH Urine 6.5 (5.0-7.5) Leuk Esterase TRACE (Neg) Nitrite Urine NEGATIVE (Neg) Protein Urine NEGATIVE (Neg) Glucose Urine NEGATIVE (Neg) Ketone Urine TRACE (Neg) Urobilinogen 0.2 mg/dL (0-1.0) Bilirubin Urine NEGATIVE (Neg) Blood/HGB Urine 2+ Abnormal (Neg) Epithelial Cells NEGATIVE [HPF] (Neg) Hyaline Casts 4.2 [LPF] (0-5) Bacteria NEGATIVE [HPF] (Neg) Urine WBC 19.1 [HPF] High (0-8) Urine RBC 18.8 [HPF] High (0-3) 60 [facility] Microbiology res 61 finding <SEE NOTE> Laboratory test 08/03/2019 [facility] Poc Negative Negative 62 finding , Urine Poc Urinalysis 08/03/2019 [facility] Poc Glucose, Negative Negative Urine Poc Bilirubin, Urine Negative Negative Poc Ketone, Urine Negative Negative Poc Specific Mand[place], Urine <= 1.005 Low 1.010-1.030 Poc Blood, Urine 1+ Abnormal Negative Poc pH, Urine 6.5 Normal 5-9 Poc Protein, Urine Negative Negative Poc Urobilinogen, Urine 0.2 Negative Poc Nitrite, Urine Negative Negative Poc Leukocytes, Urine 1+ Abnormal Negative Poc Color, Urine Yellow Poc Clarity, Urine Clear 63 Urine Culture And 08/03/2019 [facility] Urine Culture SEE RESULT 64, 65 Sensitivities BELOW 1 12/2019 labs 2 Less than 0.05: Myocardial injury unlikely Greater than or equal to 0.05: Highly suggestive of myocardial injury Correlation with rise and/or fall of serial troponins, clinical symptoms and ECG changes is necessary. Unless otherwise specified, testing performed by [facility] [address] [place] [id number] 3 Updated Reference Range 09/2019 4 Updated Reference Range 09/2019 5 Updated Reference Range 09/2019 6 Updated Reference Range 09/2019 7 Updated Reference Range 09/2019 8 Updated Reference Range 09/2019 9 Updated Reference range 09/2019 10 Updated Reference range 09/2019 11 Updated Reference Range 09/2019 12 Updated Reference Range 09/2019 13 Updated Reference Range 09/2019 14 Updated Reference Range 09/2019 15 Updated Reference Range 09/2019 16 Updated Reference Range 09/2019 17 Updated Reference Range 09/2019 18 Updated Reference Range 09/2019 19 Updated Reference Range 09/2019 20 Updated reference range on new analyzer 21 Updated reference range on new analyzer 22 Updated reference range 03-10-2019 23 Updated Reference Range 24 Concerning GFR Guidelines for Americans: Normal function or mild renal disease, if clinically at risk: >/= 60 mL/min Moderately decreased: 30-59 Severely decreased: 15-29 Renal failure: <15 There is reduced accuracy above 60ml/min/1.73 m squared, but the numeric value may be clinically useful in the near 60 range 25 Concerning GFR Guidelines: Normal function or mild renal disease, if clinically at risk: >/= 60 mL/min Moderately decreased: 30-59 Severely decreased: 15-29 Renal failure: <15 There is reduced accuracy above 60ml/min/1.73 m squared, but the numeric value may be clinically useful in the near 60 range Glomerular Filtration Rate (GFR) is estimated based on the CKD-EPI equation, which assumes a steady state for creatinine as recommended by the National Kidney Disease Education Program in conjunction with the National Institutes of Health and the National Kidney Foundation. Clinical conditions in which it may be necessary to measure GFR by using clearance methods include extremes of age and body size, severe malnutrition or obesity, diseases of skeletal muscle, paraplegia or quadriplegia, vegetarian diet, rapidly changing kidney function, and calculation of the dose of potentially toxic drugs that are excreted by the kidneys. 26 in 1 mo; letter 27 Clinical Guidelines for recommended serum 25(OH)Vitamin D Deficient at less than 20 ng/mL Insufficient at 20 to <30 ng/mL Sufficient at 30-100 ng/mL Toxicity at greater than 100 ng/mL 28 today fu in 2 weeks 29 Updated Reference Range 09/2019 30 Updated Reference Range 09/2019 31 Updated Reference Range 09/2019 32 Updated Reference Range 09/2019 33 Updated Reference Range 09/2019 34 Updated Reference Range 09/2019 35 Updated Reference range 09/2019 36 Updated Reference range 09/2019 37 Updated Reference Range 09/2019 38 Updated Reference Range 09/2019 39 Updated Reference Range 09/2019 40 Updated Reference Range 09/2019 41 Updated Reference Range 09/2019 42 Updated Reference Range 09/2019 43 Updated Reference Range 09/2019 44 Updated Reference Range 09/2019 45 Updated Reference Range 09/2019 46 Updated reference range on new analyzer 47 Updated reference range on new analyzer 48 Updated reference range 03-10-2019 49 Updated Reference Range 50 Concerning GFR Guidelines for Americans: Normal function or mild renal disease, if clinically at risk: >/= 60 mL/min Moderately decreased: 30-59 Severely decreased: 15-29 Renal failure: <15 There is reduced accuracy above 60ml/min/1.73 m squared, but the numeric value may be clinically useful in the near 60 range 51 Concerning GFR Guidelines: Normal function or mild renal disease, if clinically at risk: >/= 60 mL/min Moderately decreased: 30-59 Severely decreased: 15-29 Renal failure: <15 There is reduced accuracy above 60ml/min/1.73 m squared, but the numeric value may be clinically useful in the near 60 range Glomerular Filtration Rate (GFR) is estimated based on the CKD-EPI equation, which assumes a steady state for creatinine as recommended by the National Kidney Disease Education Program in conjunction with the National Institutes of Health and the National Kidney Foundation. Clinical conditions in which it may be necessary to measure GFR by using clearance methods include extremes of age and body size, severe malnutrition or obesity, diseases of skeletal muscle, paraplegia or quadriplegia, vegetarian diet, rapidly changing kidney function, and calculation of the dose of potentially toxic drugs that are excreted by the kidneys. 52 Clinical Guidelines for recommended serum 25(OH)Vitamin D Deficient at less than 20 ng/mL Insufficient at 20 to <30 ng/mL Sufficient at 30-100 ng/mL Toxicity at greater than 100 ng/mL 53 SENT BY DOC FOR BLOODWORK AND IMAGING 54 NO GROWTH: FINAL REPORT 55 NO GROWTH: FINAL REPORT 56 Note: Persistent reduction for 3 months or more in an eGFR <60 mL/min/1.73 m2 defines CKD. Patients with eGFR values >/=60 mL/min/1.73 m2 may also have CKD if evidence of persistent proteinuria is present. The original MDRD equation for estimated GFR is not valid for patients less than 18 years of age. Additional information may be found at www.kdoqi.org. 57 NO GROWTH: FINAL REPORT 58 NO GROWTH: FINAL REPORT 59 URINE, CLEAN CATCH 60 Unless otherwise specified, testing performed by [facility] [address] [place] [address] 61 Microbiology results SOURCE Clean Catch Midstream FINAL RESULT No growth 62 Track Rider: [id number] Test Disclaimer: Positive bacteria, red blood cells, white blood cells, early , low specific gravity, and other factors may cause false positive or negative results. It is recommended to retest unexpected and borderline results with a serum test when applicable. If is still suspected, please repeat test after 48 to 72 hours. 63 Track Rider: [id number] 65 SEE RESULT BELOW Name: AYLEEN LEWIS : [address]: Jorge Trejo MD Acct: [id number] Unit: [id number] AGE: 29 Location: [facility] Re08/03/19 SEX: F Status: DEP ER SPEC: [id number] MARAL: 08/03/[address] [facility] [address]: Jorge Trejo MD REQ: [id number] RECD: 08/04/19 STATUS: VANNESA NAVARRO DR: Davida Richard MD _ SOURCE: URINE SPDESC: ORDERED: Urine Culture COMMENTS: [id number] Procedure Result Reported Site Urine Culture Final 08/06/19- 822 ML Organism 1 ESCHERICHIA COLI [place] Count 10-25,000 (Moderate) CFU/ML 1. ESCHERICHIA COLI M.I.C. RX --------- ------ Ampicillin <=2 S Cefazolin <=4 S Cefepime <=1 S Ceftriaxone <=1 S Ciprofloxacin <=0.25 S Gentamicin <=1 S Levofloxacin <=0.12 S Meropenem <=0.25 S Nitrofurantoin <=16 S Tetracycline <=1 S Pipercillin/Tazobactam <=4 S Trimethoprim/Sulfamethoxazole <=20 S Amoxicillin/Clavulanic Acid <=2 S Aztreonam <=1 S Contact the Microbiology Department for any additional antibiotic reporting. * [facility] - Main Lab . END OF REPORT DEPARTMENT OF PATHOLOGY, [address] [place] [address] Jose Maria Moser M.D. Director [facility] # [id number] Procedures Date Code Description Status 12/30/2019 21673 Brief Emotional/Behav Assessment W/ Scoring Doc Per Completed [facility] 12/15/2019 58303 Visual Screening Test Completed 12/15/2019 78347 Screening Hearing Test Completed 11/15/2019 35399 Brief Emotional/Behav Assessment W/ Scoring Doc Per Completed [facility] 10/11/2019 20007 Brief Emotional/Behav Assessment W/ Scoring Doc Per Completed Standard [facility] 09/29/2019 21921 Brief Emotional/Behav Assessment W/ Scoring Doc Per Completed Standard [facility] Medical Devices Description No Information Available Encounters Type Date Location Provider Dx Diagnosis Office Visit 12/15/2019 11:30a Davida Trujillo MD R42 Dizziness and giddiness H92.03 Otalgia, bilateral H93.13 Tinnitus, bilateral J01.90 Acute sinusitis, unspecified H83.09 Labyrinthitis, unspecified ear B07.0 Plantar wart Office Visit 11/24/2019 1:45p [facility] Davida Richard MD H83.09 Labyrinthitis, unspecified ear R42 Dizziness and giddiness R35.0 Frequency of micturition F41.9 Anxiety disorder, unspecified Office Visit 11/15/2019 10:15a [facility] Davida Richard MD F43.22 Adjustment disorder with anxiety E55.9 Vitamin D deficiency, unspecified E53.9 Vitamin B deficiency, unspecified Office Visit 10/11/2019 10:00a [facility] Davida Richard MD F43.22 Adjustment disorder with anxiety E55.9 Vitamin D deficiency, unspecified E53.9 Vitamin B deficiency, unspecified Z13.89 Encounter for screening for other disorder Office Visit 09/29/2019 9:45a [facility] Davida Richard MD F41.9 Anxiety disorder, unspecified Z13.31 Encounter for screening for depression R63.4 Abnormal weight loss Office Visit 08/16/2019 4:15p [facility] Davida Richard MD N10 Acute pyelonephritis Office Visit 08/06/2019 3:15p [facility] Merle Pina NP N10 Acute pyelonephritis Office Visit 08/04/2019 11:15a [facility] Merle Pina NP N10 Acute pyelonephritis Assessments Date Code Description Provider 12/30/2019 R00.2 Palpitations Merle Pina NP 12/30/2019 I44.30 Unspecified atrioventricular block Merle Pina NP 12/30/2019 R00.2 Palpitations Schedule, Laboratory 12/30/2019 R42 Dizziness and giddiness Merle Pina NP 12/30/2019 R00.2 Palpitations [facility] 12/30/2019 F41.9 Anxiety disorder, unspecified Merle Pina, DAMASCENER 12/20/2019 E53.9 Vitamin B deficiency, unspecified Davida Richard MD 12/20/2019 E53.9 Vitamin B deficiency, unspecified Schedule, Laboratory 12/20/2019 E55.9 Vitamin D deficiency, unspecified Davida Richard MD 12/20/2019 E55.9 Vitamin D deficiency, unspecified Schedule, Laboratory 12/20/2019 E53.9 Vitamin B deficiency, unspecified [facility] 12/20/2019 E55.9 Vitamin D deficiency, unspecified [facility] 12/15/2019 R42 Dizziness and giddiness Davida Richard MD 12/15/2019 H92.03 Otalgia, bilateral Davida Richard MD 12/15/2019 H93.13 Tinnitus, bilateral Davida Richard MD 12/15/2019 J01.90 Acute sinusitis, unspecified Davida Richard MD 12/15/2019 H83.09 Labyrinthitis, unspecified ear Davida Richard MD 12/15/2019 B07.0 Plantar wart Davida Richard MD 11/24/2019 H83.09 Labyrinthitis, unspecified ear Davida Richard MD 11/24/2019 R42 Dizziness and giddiness Davida Richard MD 11/24/2019 R35.0 Frequency of micturition Davida Richard MD 11/24/2019 F41.9 Anxiety disorder, unspecified Davida Richard MD 11/15/2019 F43.22 Adjustment disorder with anxiety Davida Richard MD 11/15/2019 E55.9 Vitamin D deficiency, unspecified Davida Richard MD 11/15/2019 E53.9 Vitamin B deficiency, unspecified Davida Richard MD 10/11/2019 F43.22 Adjustment disorder with anxiety Davida Richard MD 10/11/2019 E55.9 Vitamin D deficiency, unspecified Davida Richard MD 10/11/2019 E53.9 Vitamin B deficiency, unspecified Davida Richard MD 10/11/2019 Z13.89 Encounter for screening for other disorder Davida Richard MD 09/29/2019 E55.9 Vitamin D deficiency, unspecified [facility] 09/29/2019 F41.9 Anxiety disorder, unspecified Davida Richard MD 09/29/2019 F41.9 Anxiety disorder, unspecified [facility] 09/29/2019 F41.9 Anxiety disorder, unspecified Davida Richard MD 09/29/2019 Z13.31 Encounter for screening for depression Davida Richard MD 09/29/2019 R63.4 Abnormal weight loss [facility] 09/29/2019 R63.4 Abnormal weight loss Davida Richard MD 09/29/2019 R63.4 Abnormal weight loss Davida Richard MD 09/29/2019 F41.9 Anxiety disorder, unspecified Schedule, Laboratory 09/29/2019 R63.4 Abnormal weight loss Schedule, Laboratory 08/16/2019 N10 Acute pyelonephritis Davida Richard MD 08/06/2019 N10 Acute pyelonephritis Merle Pina, DAMASCENER 08/04/2019 N10 Acute pyelonephritis Merle Pina, DAMASCENER 08/04/2019 N10 Acute pyelonephritis [facility] Plan of Treatment Future Appointment(s):01/31/2020 1:15 pm - [facility] [place] [facility] [facility] Merle Pina, NPR00.2 PalpitationsComments:Pt with racing heart x3 days. Asymptomatic nowWill check labsDiscussed continue care with cardiology. Pt anticipates contacting to schedule appointmentCheck labs to look for anemia, metabolic causesIf palpitations come on severe, persistant, associated with other sxs such as sob, chest pain, other sxs, then recommend evaluation, consider ER/ambulance.Follow up:Labs today with F/U as indicated by [id number] Unspecified atrioventricular blockComments:Recommend follow-up with cardiologyPt aniticiates contacting as [id number] Dizziness and giddinessComments:Better today after treatment of OM by on Continue follow-up as hafmwoutwE66.9 Anxiety disorder, unspecifiedComments: GAD7:2Continue counseling with Ankit Llanes as scheduledCall with change or worsened symptoms Functional Status Description No Information Available Mental Status Description No Information Available Referrals Refer to Reason for Referral Status Appt Date [facility] 29 yo with anxiety, 3mo post , Closed 2018 several anxiety invoking events recently see my notes faxed 09/29/19 js spoke to Patient on moble phone and she is aware that she needs to call to schedule appt. JENNIFER FROM OFFICE CALLED TO LET US KNOW THAT THEY CALLED PATIENT ON 10/12 TO SCHEDULE BUT PT HAS NOT SCHEDULED YET. [phone] ANKIT- THIS IS THE NUMBER FOR THE PROVIDER. -TRH 10/18 PATIENT CALLED US TO LET US KNOW THAT SHE DID GO TO AN APPT. T-RH 10/18 Ankit Shaikh called and stated that she has seen the pt a couple times. She stated that she could be reached at [phone]. I called back and lm regarding if she could fax over the visit notes to add to the chart. KR 11/01 24 [place]ond[place] [address] [phone]
--- OUTSIDE RECORDS SUMMARY | 2020-01-03 19:38 | XMS REPORT | Continuity of Care Document ---
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 [phone] Therapist Problems Description No Information Available Social History Type Date Description Comments Sex Unknown ETOH Use Occasionally consumes alcohol Tobacco Use Start: Unknown Patient has never smoked Smoking Status Reviewed: 08/21/18 Patient has never smoked Allergies, Adverse Reactions, Alerts Active Allergies Reaction Severity Comments Date Amoxicillin 10/27/2014 Medications Active Medications SIG Qnty Indications Ordering Provider Date Cefdinir 2 by mouth daily 20caps J01.90 Davida Richard, 12/15/2019 300mg Capsules Fluticasone Propionate 2 sprays to each 16gm J01.90 Davida Richard, 03/2020 nostril daily 50mcg/Act Suspension Vitamin D3 2 by mouth every 30caps E55.9 Davida Richard, 11/15/2019 50mcg (2000 day Ut) Capsules Vitamin B-12 take one tablet 90tabs E53.9 Davida Richard, 09/30/2019 1000mcg by mouth every MD Tablets day with food/protein/servando t Paragard Intrauterine Unknown Copper Contraceptive T380a T380a IUD Singulair 1 by mouth every Unknown 10mg Tablets day History Medications Vitamin D3 1 by mouth 90caps E55.9 Davida Richard, 09/30/2019 - 125mcg (5000 every day with MD 11/15/2019 Ut) Capsules main meal with meat fat oil Sertraline HCL 1 by mouth 30tabs F41.9 Davida Richard, 09/29/2019 - 25mg every day in 10/10/2019 Tablets the morning Ciprofloxacin HCL 1 tab by mouth 14tabs N10 Kaycee Anthony MD 08/04/2019 - 500mg twice a day 08/11/2019 Tablets Immunizations CPT Code Status Date Vaccine Reaction Lot # [id number] Given 12/29/2015 Tdap (Adacel) Ages 7 And Above Only per nysiis 30151 Given 11/20/2009 Menactra/Menveo Meningococcal Vaccine per nysiis 49832 Given 11/20/2009 Varicella (Chicken Pox) Immunization per nysiis 96049 Given 11/20/2009 Tdap (Adacel) Ages 7 And Above Only per nysiis 28739 Given 11/24/2007 HPV Vaccine (Gardasil) 3 Dose Schedule per nysiis 92229 Given 08/03/2007 Tdap (Adacel) Ages 7 And Above Only per nysiis 85011 Given 07/02/2007 HPV Vaccine (Gardasil) 3 Dose Schedule per nysiis 35533 Given 05/07/2007 HPV Vaccine (Gardasil) 3 Dose Schedule per nysiis 70492 Given 06/08/2004 Hepatitis B Vac Ped/Adolescent 3 Dose per nysiis Schedule U-Polio Given 08/25/1997 Polio (Non Billable) Unspecified per nysiis 94839 Given 08/25/1997 DTaP Immunization 6 Yrs & Younger per nysiis 79248 Given 08/19/1997 Varicella (Chicken Pox) Immunization per nysiis 86429 Given 06/01/1996 MMR Virus Immunization per nysiis 80911 Given 12/18/1995 Hepatitis B Vac Ped/Adolescent 3 Dose per nysiis Schedule 90861 Given 05/24/1994 MMR Virus Immunization per nysiis 96461 Given 05/24/1994 DTaP Immunization 6 Yrs & Younger per nyis U-Polio Given 05/24/1994 Polio (Non Billable) Unspecified per nysiis 00805 Given 05/25/1993 Hepatitis B Vac Ped/Adolescent 3 Dose per nysiis Schedule 02617 Given 1993 Hib ACTHiB Vaccine 4 Dose Schedule per nysiis 30176 Given 1992 DTaP Immunization 6 Yrs & Younger per nysiis 30698 Given 1992 Hib ACTHiB Vaccine 4 Dose Schedule per [facility] U-Polio Given 1992 Polio (Non Billable) Unspecified per [facility] 84210 Given 1992 DTaP Immunization 6 Yrs & Younger per [facility] 88449 Given 1992 Hib ACTHiB Vaccine 4 Dose Schedule per [facility] 33980 Given 1992 DTaP Immunization 6 Yrs & Younger per [facility] 32398 Given 1992 Hib ACTHiB Vaccine 4 Dose Schedule per [facility] U-Polio Given 1992 Polio (Non Billable) Unspecified per [facility] U-Flu Refused 12/15/2019 Influenza (Non Billable) Pt says she has not yet Unspecified gotten a flu shot. 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7 kg/m2 Results Test Acquired Date Facility Test Result H/L Range Note [facility] K/uL 4.1-11.0 1, 2 RBC 4.51 M/uL 4.00-5.40 3 Hemoglobin 13.1 gm/dL 12.0-16.0 4 Hematocrit 39.6 % 36.0-47.0 5 MCV 88.0 fL 80.0-95.0 6 MCH 29.0 pg 27.0-32.0 7 MCHC 32.9 g/dL 32.0-36.0 8 RDW 17.0 % High 10.5-14.5 9 PLT Count 314 K/ul 150-400 10 MPV 8.1 FL 7.1-10.7 Neutrophil 80.5 % High 35.0-75.0 11 Lymphocyte 14.7 % Low 16.0-52.0 12 Monocyte 3.4 % 0.0-8.0 13 Eosinophil 0.8 % 0.0-5.0 Basophil 0.6 % 0.0-4.0 Abs Neutrophils 4.9 K/uL 1.8-7.7 14 Abs Lymphocytes 0.9 K/uL Low 1.2-4.8 15 Abs Monocytes 0.2 K/uL 0.0-0.8 16 Abs Eosinophils 0.0 K/uL 0.0-0.5 17 Abs Basophils 0.0 K/uL 0.0-0.2 18 Comprehensive Met Panel-FCMG 09/29/2019 [facility] Sodium 140 mmol/L 135- 146 19 Potassium 4.1 mmol/L 3.5-5.2 Chloride# 104 mmol/L 97-110 20 Carbon Dioxide 27 mmol/L 24-34 Calcium 9.6 mg/dL 8.5-10.5 21 Glucose 95 mg/dL 70-105 BUN 7 mg/dL 6-26 Creatinine 0.7 mg/dL 0.5-1.4 Total Protein 6.8 g/dL 6.0-8.0 Albumin 4.3 g/dL 3.6-4.9 Globulin 2.5 g/dL 2.0-3.5 A/G Ratio 1.7 Ratio 1.0-2.2 Total Bilirubin 0.4 mg/dL 0.1-1.3 Alkaline Phosphatase 64 U/L 24-140 Alt 12 U/L 3-42 Ast 16 U/L 8-42 Anion Gap 9 mmol/L 5-15 22 Female Egfr 114 >60 23 Male Egfr 127 >60 24 Laboratory test finding 09/29/2019 [facility] TSH 0.72 uIU/mL 0.35-4.94 Free T4 1.13 ng/dL 0.70-1.48 Vitamin B12 299 pg/mL 180-914 Vitamin D 25 Hydroxy 26 ng/mL Low 30-100 25 Urinalysis With 08/06/2019 [facility] Urine Color Light- Yellow Yellow 26 Microscopic (315)- - Urine Clarity Clear Clear Urine Glucose - Dipstick NEGATIVE mg/dL Negative Urine Bilirubin - Dipstick NEGATIVE Negative Urine Ketone 60 mg/dL Abnormal Negative Urine Specific [place] 1.008 Low 1.010-1.030 Urine Blood MODERATE Abnormal [...] Seen Source: URINE, CLEAN CAT <SEE NOTE> 27 Blood Culture 08/06/2019 [facility] Blood Culture NO GROWTH: FINAL 28 (315)- - Aerobic <SEE NOTE> Blood Culture Anaerobic NO GROWTH: FINAL <SEE NOTE> 29 CBS W/Automated 08/06/2019 [facility] White Blood 5.0 K/ uL Normal 3.1-10.7 [...] 40.4-72.8 Lymph % 20.0 % Normal 20.0-42.0 Sherman % 9.5 % Normal 4.3-13.2 Eo% 2.2 % Normal 0.0-6.6 Bas% 0.4 % Normal 0.0-1.1 Immature Grans 0.4 % Normal 0.0-5.0 NRBC % 0.0 /100WBC < 10/ 100 WBC Neut# 3.40 K/uL Normal 1.8-7.0 Lymph # 1.01 K/uL Normal 1.0-4.0 Sherman # 0.48 K/uL Normal 0.3-0.9 Eos # 0.11 K/uL Normal 0.0-0.5 Baso # 0.02 K/uL Normal 0.0-0.1 Immature Grans Absolute 0.02 K/uL NRBC # 0.00 K/uL Comprehensive 08/06/2019 [facility] Glucose 87 mg/dL Normal 74-106 Metabolic Panel (315)- - BUN 6 mg/dL Low 7-18 Creatinine 0.6 mg/dL Normal 0.6-1.3 Glom Filtration Rate, Estimate >60 mL/min >60 If >60 mL/min >60 30 BUN/Creat 10.0 ratio Sodium 136 mmol/L Normal [...] 12-78 Alkaline Phosphatase 86 U/L Normal 45-117 Laboratory test 08/06/2019 [facility] Lipase 33 U/L Low 56-289 finding (315)- - Lactic Acid 08/06/2019 [facility] Lactic Acid 0.8 mmol/L Normal 0.4-1.9 (315)- - Lab Reflex >2.0 for Sepsis? Y Laboratory test 08/06/2019 [facility] HCG,Serum NEGATIVE (Negative) finding (315)- - (Qualitative) Blood Culture 08/06/2019 [facility] Blood Culture NO GROWTH: 31 (315)- - Aerobic FINAL <SEE NOTE> Blood Culture Anaerobic NO GROWTH: FINAL <SEE NOTE> 32 Rout Urine W/ Micro -RL 08/04/2019 [facility] [...] (0-8) Urine RBC 18.8 [HPF] High (0-3) 33 Laboratory test 08/04/2019 [facility] Urine Culture Microbiology res 34 finding <SEE NOTE> Laboratory test 08/03/2019 [facility] Poc Negative Negative 35 finding , Urine Poc Urinalysis 08/03/2019 [facility] Poc Glucose, Negative Negative Urine Poc Bilirubin, Urine Negative Negative Poc Ketone, Urine Negative Negative Poc Specific [place], Urine <= 1.005 Low 1.010-1.030 Poc Blood, Urine 1+ Abnormal Negative Poc pH, Urine 6.5 Normal 5-9 Poc Protein, Urine Negative Negative Poc Urobilinogen, Urine 0.2 Negative Poc Nitrite, Urine Negative Negative Poc Leukocytes, Urine 1+ Abnormal Negative Poc Color, Urine Yellow Poc Clarity, Urine Clear 36 Urine Culture And 08/03/2019 [facility] Urine Culture SEE RESULT 37, 38 Sensitivities BELOW 1 today fu in 2 weeks 2 Updated Reference Range 09/2019 3 Updated Reference Range 09/2019 4 Updated Reference Range 09/2019 5 Updated Reference Range 09/2019 6 Updated Reference Range 09/2019 7 Updated Reference Range 09/2019 8 Updated Reference range 09/2019 9 Updated Reference range 09/2019 10 Updated Reference Range 09/2019 11 Updated Reference Range 09/2019 12 Updated Reference Range 09/2019 13 Updated Reference Range 09/2019 14 Updated Reference Range 09/2019 15 Updated Reference Range 09/2019 16 Updated Reference Range 09/2019 17 Updated Reference Range 09/2019 18 Updated Reference Range 09/2019 19 Updated reference range on new analyzer 20 Updated reference range on new analyzer 21 Updated reference range 03-10-2019 22 Updated Reference Range 23 Concerning GFR Guidelines for Americans: Normal function or mild renal disease, if clinically at risk: >/= 60 mL/min Moderately decreased: 30-59 Severely decreased: 15-29 Renal failure: <15 There is reduced accuracy above 60ml/min/1.73 m squared, but the numeric value may be clinically useful in the near 60 range 24 Concerning GFR Guidelines: Normal function or mild [...] drugs that are excreted by the kidneys. 25 Clinical Guidelines for recommended serum 25(OH)Vitamin D Deficient at less than 20 ng/mL Insufficient at 20 to <30 ng/mL Sufficient at 30-100 ng/mL Toxicity at greater than 100 ng/mL 26 SENT BY DOC FOR BLOODWORK AND IMAGING 27 URINE, CLEAN CATCH 28 NO GROWTH: FINAL REPORT 29 NO GROWTH: FINAL REPORT 30 Note: Persistent reduction for 3 months or more in an eGFR <60 mL/min/1.73 m2 defines CKD. Patients with eGFR values >/=60 mL/min/1.73 m2 may also have CKD if evidence of persistent proteinuria is present. The original MDRD equation for estimated GFR is not valid for patients less than 18 years of age. Additional information may be found at www.kdoqi.org. 31 NO GROWTH: FINAL REPORT 32 NO GROWTH: FINAL REPORT 33 Unless otherwise specified, testing performed by [facility] [address] [place] [id number] 34 Microbiology results SOURCE Clean Catch Midstream FINAL RESULT No growth 35 [facility]: [id number] Test Disclaimer: Positive bacteria, red blood cells, white blood cells, early , low specific gravity, and other factors may cause false positive or negative results. It is recommended to retest unexpected and borderline results with a serum test when applicable. If is still suspected, please repeat test after 48 to 72 hours. 36 [facility]: [id number] SEE RESULT BELOW Name: AYLEEN LEWIS : [address]: Jorge Trejo MD Acct: [id number] Unit: [id number] AGE: 29 Location: [facility] Re08/03/19 SEX: F Status: DEP ER SPEC: [id number] MARAL: 08/03/[address]: Jorge Trejo MD REQ: [id number] RECD: 08/04/19-1210 STATUS: VANNESA NAVARRO DR: Davida Richard MD _ SOURCE: URINE SPDESC: ORDERED: Urine Culture COMMENTS: [id number] Procedure Result Reported Site Urine Culture Final 08/06/19- 0823 ML Organism 1 ESCHERICHIA COLI [place] Count 10-25,000 (Moderate) CFU/ML 1. ESCHERICHIA COLI [...] Department for any additional antibiotic reporting. * - Main Lab . END OF REPORT DEPARTMENT OF PATHOLOGY, [address] [place] [address] Jose Maria Moser M.D. Director [facility] # [id number] Procedures Date Code Description Status 12/15/2019 49412 Visual Screening Test Completed 12/15/2019 48264 Screening Hearing Test Completed 11/15/2019 24439 Brief Emotional/Behav Assessment W/ Scoring Doc Per Completed Standard Inst 10/11/2019 10279 Brief Emotional/Behav Assessment W/ Scoring Doc Per Completed Standard Inst 09/29/2019 13699 Brief Emotional/Behav Assessment W/ Scoring Doc Per Completed Standard [facility] Medical Devices Description No Information Available Encounters Type Date Location Provider Dx Diagnosis Office Visit 11/24/2019 [facility] Davida Richard, H83.09 Labyrinthitis, 1:45p unspecified ear R42 Dizziness and giddiness R35.0 Frequency of micturition F41.9 Anxiety disorder, unspecified Office Visit 11/15/2019 10:15a [facility] Davida Richard MD F43.22 Adjustment disorder with anxiety E55.9 Vitamin D deficiency, unspecified E53.9 Vitamin B deficiency, unspecified Office Visit 10/11/2019 10:00a [facility] Davida Richard MD F43.22 Adjustment disorder with anxiety E55.9 Vitamin D deficiency, unspecified E53.9 Vitamin B deficiency, unspecified Z13.89 Encounter for screening for other disorder Office Visit 09/29/2019 9:45a [facility] Davida Richard MD F41.9 Anxiety disorder, unspecified Z13.31 Encounter for screening for depression R63.4 Abnormal weight loss Office Visit 08/16/2019 4:15p [facility] Davida Richard MD N10 Acute pyelonephritis Office Visit 08/06/2019 3:15p [facility] Merle Pina, CODING QUALITY ANALYST N10 Acute pyelonephritis Office Visit 08/04/2019 11:15a [facility] Merle Pina CODING QUALITY ANALYST N10 Acute pyelonephritis Assessments Date Code Description Provider 12/15/2019 R42 Dizziness and giddiness Davida Richard [...] MD 09/29/2019 E55.9 Vitamin D deficiency, unspecified [facility] 09/29/2019 F41.9 Anxiety disorder, unspecified Davida Richard MD 09/29/2019 F41.9 Anxiety disorder, unspecified [facility] 09/29/2019 F41.9 Anxiety disorder, unspecified Davida Richard MD 09/29/2019 Z13.31 Encounter for screening for depression Davida Richard MD 09/29/2019 R63.4 Abnormal weight loss [facility] 09/29/2019 R63.4 Abnormal weight loss Davida Richard MD 09/29/2019 R63.4 Abnormal weight loss Davida Richard MD 09/29/2019 F41.9 Anxiety disorder, unspecified Schedule, Laboratory 09/29/2019 R63.4 Abnormal weight loss Schedule, Laboratory 08/16/2019 N10 Acute pyelonephritis Davida Richard MD 08/06/2019 N10 Acute pyelonephritis Merle Pina, GALINDO 08/04/2019 N10 Acute pyelonephritis Merle Pina, GALINDO 08/04/2019 N10 Acute pyelonephritis [facility] Plan of Treatment Future Appointment(s):01/31/2020 1:15 pm - Davida Richard MD at [facility]2019 11:30 am - Schedule, Laboratory at [facility]12/15/2019 - Davida Richard, MDR42 Dizziness and giddinessNew Orders:Physical Therapy, Scheduled: 01/06/20Comments: referral to PTFollow up:fu as svnuxdkZ55.03 Otalgia, bilateralComments:likely eustachian tube dysfunction, explained, intermittent ear pain only recommend decongestants and analgesics, may try otc afrin for no more than 3 days, sxs will last with cold then slowly resolve. signs of ear infection are steady pain and fever.H93.13 Tinnitus, bilateralComments:intermittent ear ringing, no steady pain, no hearing loss. seek care if those issues develop, MRI isthen sguuktsawowW68.90 Acute sinusitis, unspecifiedNew Medication:Cefdinir 300 mg - 2 by mouth dailyFluticasone Propionate 50 mcg/Act - 2 sprays to each nostril dailyComments:suspect acute sinusitis given history and exam . Advised pt could still be just viral infection in which case abx won't help, or antibiotics will help the bacterial infection but the viral symptoms ofcongestion and cough will continue until resolved with natural healing. Rx given, reviewed side effects. Call if develops new sxs or concerns. reviewed gi , rash side effects. call if not better in 3-4 daystry otc analgesics as needed for pain and dizziness push fluids take probiotic pills or/and eat yogurt daily recommend nasal saline flushes at least twice daily, may use more often and nasal steroid once a day to followconsider afrin otc as needed, don't use routinely for any longer than 3 daysFollow up:followup as dkyzrcmctN72.09 Labyrinthitis, unspecified earComments:she is at 4 weeks and no betterhas some sinus sxstreat for sinusitisif not better when done with antibiotics, then needs ENT vkbkwkvoS93.0 Plantar wartComments:plantar wartReviewed options of otc treatment, cryo in office or referral. Pt prefers to self treat.. Advised pt to buy plantar wart acid pads, soak first in hot water, then dry and tape on pad withelectricians tape for 48 hours. soak again in hot water, debride down the callous and repeat. if not working, call for ov to treat. Functional Status Description No Information Available Mental Status Description No Information Available Referrals Refer to Reason for Referral Status Appt Date [facility] 29 yo with anxiety, 3mo post , Closed 2018 several anxiety invoking events recently see my notes faxed 09/29/19 js spoke to Patient on [employer] [place] phone and she is aware that she needs to call to schedule appt. JENNIFER FROM OFFICE CALLED TO LET US KNOW THAT THEY CALLED PATIENT ON 10/12 TO SCHEDULE BUT PT HAS NOT SCHEDULED YET. [phone] SERENE- THIS IS THE NUMBER FOR THE PROVIDER. -TRH 10/18 PATIENT CALLED US TO LET US KNOW THAT SHE DID GO TO AN APPT. T-RH 10/18 Serene Shaikh called and stated that she has seen the pt a couple times. She stated that she could be reached at [phone]. I called back and lm regarding if she could fax over the visit notes to add to the chart. KR 11/01 24 [facility] [place] [address] [phone]
--- OUTSIDE RECORDS SUMMARY | 2020-01-03 19:38 | XMS REPORT | Continuity of Care Document ---
:1990 External Reference #:[id number] Author Name Davida Richard MD Address [address] [place] [id number] Problems Description No Information Available Social History Type Date Description Comments Sex Unknown ETOH Use Occasionally consumes alcohol Tobacco Use Start: Unknown Patient has never smoked Smoking Status Reviewed: 08/21/18 Patient has never smoked Allergies, Adverse Reactions, Alerts Active Allergies Reaction Severity Comments Date Amoxicillin 10/27/2014 Medications Active Medications SIG Qnty Indications Ordering Provider Date Vitamin D3 2 by mouth 30caps E55.9 Davida Richard, 11/15/2019 50mcg (2000 Ut) every day Capsules Vitamin B-12 take one tablet 90tabs E53.9 Davida Richard, 09/30/2019 1000mcg by mouth every MD Tablets day with food/protein/me at [facility] Intrauterine Unknown Copper Contraceptive T380a T380a IUD Singulair 1 by mouth Unknown 10mg Tablets every day History Medications Vitamin D3 1 by [...] Code Status Date Vaccine Reaction Lot # 27579 Given 12/29/2015 Tdap (Adacel) Ages 7 And Above Only per [facility] 70064 Given 11/20/2009 Menactra/Menveo Meningococcal Vaccine per [facility] 76115 Given 11/20/2009 Varicella (Chicken Pox) Immunization per [facility] 20348 Given 11/20/2009 Tdap (Adacel) Ages 7 And Above Only per [facility] 30109 Given 11/24/2007 HPV Vaccine (Gardasil) 3 Dose Schedule per [facility] 87514 Given 08/03/2007 Tdap (Adacel) Ages 7 And Above Only per [facility] 84682 Given 07/02/2007 HPV Vaccine (Gardasil) 3 Dose Schedule per [facility] 74047 Given 05/07/2007 HPV Vaccine (Gardasil) 3 Dose Schedule per [facility] 96433 Given 06/08/2004 Hepatitis B Vac Ped/Adolescent 3 Dose per [facility] Schedule U-Polio Given 08/25/1997 Polio (Non Billable) Unspecified per [facility] 75391 Given 08/25/1997 [facility] 6 Yrs & [facility]ounger [facility] 18373 Given 08/19/1997 Varicella (Chicken Pox) Immunization per [facility] 15061 Given 06/01/1996 M[facility] Virus [facility] 84401 Given 12/18/1995 Hepatitis B Vac Ped/Adolescent 3 Dose per [facility] Schedule U-Polio Given 05/24/1994 Polio (Non Billable) [facility] 94366 Given 05/24/1994 MMR Virus Immunization per [facility] 26312 Given 05/24/1994 DTaP Immunization 6 Yrs & Younger per [facility] 65067 Given 05/25/1993 Hepatitis B Vac Ped/Adolescent 3 Dose per [facility] Schedule 22142 Given 1993 Hib ACTHiB Vaccine 4 Dose Schedule per [facility] 09941 Given 1992 DTaP Immunization 6 Yrs & Younger [facility] 31420 Given 1992 Hib ACTHiB Vaccine 4 Dose Schedule per [facility] U-Polio Given 1992 Polio (Non Billable) [facility] 34234 Given 1992 DTaP Immunization 6 Yrs & Younger [facility] 58404 Given 1992 Hib ACTHiB Vaccine 4 Dose [facility] 08026 Given 1992 DTaP Immunization 6 Yrs & Younger [facility] 60986 Given 1992 Hib ACTHiB Vaccine 4 Dose Schedule per [facility] U-Polio Given 1992 Polio (Non Billable) Unspecified per [facility] 50949 Refused 09/29/2019 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 Preservative & Antibiotic Free Q2039 Refused 01/19/2018 Flu Vaccine NOS Vital Signs Date Vital Result Comment 11/24/2019 2:09pm Body Temperature 98.9 F Weight 116.00 lb Heart Rate 70 /min BP Systolic 110 mmHg BP Diastolic 70 mmHg Height 62.75 inches 5'2.75" BMI (Body Mass Index) 20.7 kg/m2 11/15/2019 10:19am Weight 116.00 lb Heart Rate 76 /min BP Systolic 118 mmHg BP Diastolic 70 mmHg Respiratory Rate 16 /min Height 62.75 inches 5'2.75" BMI (Body Mass Index) 20.7 kg/m2 Results Test Acquired Date Facility Test Result H/L Range Note CBC with Auto Diff-fcmg 09/29/2019 [facility] 6.0 K/uL 4.1-11.0 1, 2 RBC [...] ng/mL Low 30-100 25 Urinalysis With 08/06/2019 [facility] Urine Color Light- Yellow Yellow 26 Microscopic (315)- - Urine Clarity Clear Clear Urine Glucose - Dipstick NEGATIVE mg/dL Negative Urine Bilirubin - Dipstick NEGATIVE Negative Urine Ketone 60 mg/dL Abnormal Negative Urine Specific [place] 1.008 Low 1.010-1.030 Urine Blood MODERATE Abnormal [...] CAT <SEE NOTE> 27 Blood Culture 08/06/2019 [facility] Blood Culture NO GROWTH: FINAL 28 (315)- - Aerobic <SEE NOTE> Blood Culture Anaerobic NO GROWTH: FINAL <SEE NOTE> 29 CBS W/Automated 08/06/2019 [facility] White Blood 5.0 K/ uL [...] 40.4-72.8 Lymph % 20.0 % Normal 20.0-42.0 [place] % 9.5 % Normal 4.3-13.2 Eo% 2.2 % Normal 0.0-6.6 Bas% 0.4 % Normal 0.0-1.1 Immature Grans 0.4 % Normal 0.0-5.0 NRBC % 0.0 /100WBC < 10/ 100 WBC Neut# 3.40 K/uL Normal 1.8-7.0 Lymph # 1.01 K/uL Normal 1.0-4.0 [place] # 0.48 K/uL Normal 0.3-0.9 Eos # 0.11 K/uL Normal 0.0-0.5 Baso # 0.02 K/uL Normal 0.0-0.1 Immature Grans Absolute 0.02 K/uL NRBC # 0.00 K/uL Comprehensive 08/06/2019 [facility] Glucose 87 mg/dL Normal 74-106 [...] 86 U/L Normal 45-117 Laboratory test 08/06/2019 [facility] Lipase 33 U/L Low 56-289 finding (315)- - Lactic Acid 08/06/2019 [facility] Lactic Acid 0.8 mmol/L Normal 0.4-1.9 (315)- - Lab Reflex >2.0 for Sepsis? Y Laboratory test 08/06/2019 [facility] HCG,Serum NEGATIVE (Negative) finding (315)- - (Qualitative) Blood Culture 08/06/2019 [facility] Blood Culture NO GROWTH: 31 (315)- [...] [HPF] High (0-3) 33 Laboratory test 08/04/2019 [facility] Microbiology res 34 finding <SEE NOTE> Laboratory test 08/03/2019 [facility] Poc Negative Negative 35 finding , Urine Poc Urinalysis 08/03/2019 [facility] Poc Glucose, Negative Negative Urine Poc Bilirubin, Urine Negative Negative Poc Ketone, Urine Negative Negative Poc Specific [place], Urine <= 1.005 Low 1.010-1.030 Poc Blood, Urine 1+ Abnormal Negative Poc pH, Urine 6.5 Normal 5-9 Poc Protein, Urine Negative Negative Poc Urobilinogen, Urine 0.2 Negative Poc Nitrite, Urine Negative Negative Poc Leukocytes, Urine 1+ Abnormal Negative Poc Color, Urine Yellow Poc Clarity, Urine Clear 36 Urine Culture And 08/03/2019 [facility] Urine Culture SEE RESULT 37, 38 [...] greater than 100 ng/mL 26 SENT BY [facility] FOR BLOODWORK AND IMAGING 27 URINE, CLEAN [...] Unless otherwise specified, testing performed by [facility] [employer] [address] [place] [address] 34 Microbiology results SOURCE Clean Catch Midstream FINAL RESULT No growth 35 Payroll Associate: [id number] Test Disclaimer: Positive bacteria, red blood cells, white blood cells, early , low specific gravity, and other factors may cause false positive or negative results. It is recommended to retest unexpected and borderline results with a serum test when applicable. If is still suspected, please repeat test after 48 to 72 hours. 36 Payroll Associate: [id number] SEE RESULT BELOW Name: AYLEEN LEWIS : [address]: Jorge Trejo MD Acct: [id number] Unit: [id number] AGE: 29 Location: [facility] Re08/03/19 SEX: F Status: DEP ER SPEC: [id number] MARAL: 08/03/[address] [facility] [address]: Jorge Trejo MD REQ: [id number] RECD: 08/04/19 STATUS: VANNESA NAVARRO DR: Davida Richard MD _ SOURCE: URINE SPDESC: ORDERED: Urine Culture COMMENTS: [id number] Procedure Result Reported Site Urine Culture Final 08/06/19 08 ML Organism 1 ESCHERICHIA COLI [place] Count 10-25,000 (Moderate) CFU/ML 1. ESCHERICHIA COLI [...] . END OF REPORT DEPARTMENT OF PATHOLOGY, [address] [place] [address] Jose Maria Moser M.D. Director [facility] # [id number] Procedures Date Code Description Status 11/15/2019 84570 Brief Emotional/Behav Assessment W/ Scoring Doc Per Completed [facility] 10/11/2019 19581 Brief Emotional/Behav Assessment W/ Scoring Doc Per Completed [facility] 09/29/2019 54800 Brief Emotional/Behav Assessment W/ Scoring Doc Per Completed [facility] Medical Devices Description No Information Available Encounters Type Date Location Provider Dx Diagnosis Office Visit 11/15/2019 [facility] Davida Richard, F43.22 Adjustment disorder 10:15a MD with anxiety E55.9 Vitamin D deficiency, unspecified E53.9 Vitamin B deficiency, unspecified Office Visit 10/11/2019 10:00a [facility] Davida Richard MD F43.22 Adjustment disorder with anxiety E55.9 Vitamin D deficiency, unspecified E53.9 Vitamin B deficiency, unspecified Z13.89 Encounter for screening for other disorder Office Visit 09/29/2019 9:45a [facility] Davida Richard MD F41.9 Anxiety disorder, unspecified Z13.31 Encounter for screening for depression R63.4 Abnormal weight loss Office Visit 08/16/2019 4:15p [facility] Davida Richard MD N10 Acute pyelonephritis Office Visit 08/06/2019 3:15p [facility] Merle Pina NP N10 Acute pyelonephritis Office Visit 08/04/2019 11:15a [facility] Merle Pina NP N10 Acute pyelonephritis Assessments Date Code Description Provider 11/24/2019 H83.09 Labyrinthitis, unspecified ear Davida Richard [...] MD 09/29/2019 E55.9 Vitamin D deficiency, unspecified [facility] 09/29/2019 F41.9 Anxiety disorder, unspecified Davida Richard MD 09/29/2019 F41.9 Anxiety disorder, unspecified [facility] 09/29/2019 F41.9 Anxiety disorder, unspecified Davida Richard MD 09/29/2019 Z13.31 Encounter for screening for depression Davida Richard MD 09/29/2019 R63.4 Abnormal weight loss [facility] 09/29/2019 R63.4 Abnormal weight loss Davida Richard MD 09/29/2019 R63.4 Abnormal weight loss Davida Richard MD 09/29/2019 F41.9 Anxiety disorder, unspecified Schedule, Laboratory 09/29/2019 R63.4 Abnormal weight loss Schedule, Laboratory 08/16/2019 N10 Acute pyelonephritis Davida Richard MD 08/06/2019 N10 Acute pyelonephritis Merle Pina, GALINDO 08/04/2019 N10 Acute pyelonephritis Merle Pina, FASTENER SEWING MACHINE OPERATOR 08/04/2019 N10 Acute pyelonephritis [facility] Plan of Treatment Future Appointment(s):01/31/2020 1:15 pm - Davida Richard MD at [facility]2019 11:30 am - Schedule, Laboratory at [facility]AT[facility]11/24/2019 - Davida Richard MDH83.09 Labyrinthitis, unspecified earComments:Pt with a prodrome of minor uri sxs, now with "dizziness" that appears related to labyrinth functionbased on Oconnell pike maneuvers. Advised the most common etiology is labyrinthitis, likely viral. Explained how the infection of the balance system can occcur, pictures used to assist explanation, explained sxs, ways to deal with the loss of balance sensation, etc. Advised the pt of the course of illness, like other viruses, will often worsen before improving, may be helped with meclizine/ antivert but usually needs to run its course before improving. Advised to call prn headache, ear pain, fever, or hearing loss develop, or if there are concerns for stroke. Call if sxs lasts > 4 weeks or seem to be severe or do not begin to improve within 2 weeks.Follow up:as [id number] Dizziness and jhndnbjpbP33.0 Frequency of micturitionComments:urine dip reassuringFollow up: as [id number] Anxiety disorder, unspecifiedComments:discussed situation thoroughly to help her deal with this advised if dizzy, hold still use eyes, hands to touch ying, wait for sensation to calm, it will. then do a head to toe check that all is okok to schedule visit if wants repeat eval Functional Status Description No Information Available Mental Status Description No Information Available Referrals Refer to Reason for Referral Status Appt Date [facility] 29 yo with anxiety, 3mo post , Closed 2018 several anxiety invoking events recently see my notes faxed 09/29/19 js spoke to Patient on moble phone and she is aware that she needs to call to schedule appt. JENNIFER FROM OFFICE CALLED TO LET US KNOW THAT THEY CALLED PATIENT ON 10/12 TO SCHEDULE BUT PT HAS NOT SCHEDULED YET. [phone] SERENE- THIS IS THE NUMBER FOR THE PROVIDER. -TRH 10/18 PATIENT CALLED US TO LET US KNOW THAT SHE DID GO TO AN APPT. T-RH 10/18 Serene Hawa called and stated that she has seen the pt a couple times. She stated that she could be reached at [phone]. I called back and lm regarding if she could fax over the visit notes to add to the chart. KR 11/01 [address] [place] [address] [phone]
== END 2020-01-03 20:35 | disposition left against medical advice (07) ==
LOC: UCCORT 19:31
DX: Z53.21 Procedure and treatment not carried out due to patient leaving prior to being seen by health care provider (principal)